=== PATIENT | male | born 1950 | race Caucasian/White ===

== ENCOUNTER 2017-12-12 12:10 | Day surgery (SDC) | payer MEDICARE, BC ==
[~2017-12-12 12:10] MED LIST: RINGER'S SOLUTION,LACTATED 1,000 ML IV PRN
[2017-12-12] MEDS ORDERED: RINGER'S SOLUTION,LACTATED 1,000 ML IV ONE (13:03)
[2017-12-12] MEDS ORDERED: RINGER'S SOLUTION,LACTATED 1,000 ML IV PRN (13:36)
--- NOTE | 2017-12-13 07:19 | OR ---
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 He has had subsequent surveillance colonoscopies (most recently 2012) with only one hyperplastic polyp in 2007. He is currently asymptomatic FINDINGS: Diverticulosis otherwise normal exam to the small bowel to colon anastomosis NARRATIVE OF PROCEDURE: The patient was identified in the holding area, and prior to the administration of anesthetic, a multidisciplinary timeout was observed. With the patient in the left lateral position and after the administration of intravenous sedation, the perineum was inspected. There was no evidence of pilonidal disease or skin breakdown. The external appearance of the anus was normal. Sphincter tone was good. The flexible fiberoptic colonoscope was inserted into the rectum which was insufflated with air. The rectal mucosa and submucosal vascular pattern appeared normal, the prep was seen to be complete. The scope was advanced through the sigmoid colon, up the descending colon, and around the splenic flexure where the triangular haustral architecture of the transverse colon was seen. The scope was advanced across the transverse colon to the small bowel to colon anastomosis. This appeared slightly hyperplastic and a biopsy was obtained. The biopsy site was seen to be hemostatic. The scope was then slowly withdrawn in a circular fashion so that all aspects of colonic mucosa were inspected. The colon was normal in caliber. The haustral architecture appeared well preserved throughout with no evidence of external compression. The mucosa and submucosal vascular pattern appeared normal, specifically there was no gross evidence to suggest colitis or inflammatory bowel disease and no AV malformations were seen. Diverticulosis was moderate in degree and confined primarily to the sigmoid colon. No polyps were encountered. The scope was gradually withdrawn to the level of the rectum. As much insufflated air as possible was removed. The scope was withdrawn from the patient and the procedure terminated. The patient tolerated the anesthetic and procedure well without complication and was transferred back to the ambulatory surgery area awake and in stable condition. The patient remained stable throughout a period of postoperative observation. He denied abdominal discomfort, was able to tolerate by mouth intake, and was up without assistance. I shared the operative findings with the patient and he was given copies of the photographs which appear in the medical record. He was discharged home with instructions not to engage in hazardous activity today, but may resume normal activity tomorrow, and advance diet as tolerated. He is to continue those medications as listed in the history and physical exam. I made arrangements to contact him with the biopsy report and will make additional recommendation for treatment and follow-up based upon that result. Reviewed and electronically signed
[2017-12-13 08:35] VITALS: BP 138/87
== END 2017-12-12 12:11 | disposition home or self-care (01) ==
LOC: AMB 12:10
PROVIDERS: ATTEND Surgery
PROC: 0DBH8ZX Excision of Cecum, Via Natural or Artificial Opening Endoscopic, Diagnostic (ICD-10-PCS; principal; 2017-12-12)
DX: K57.32 Diverticulitis of large intestine without perforation or abscess without bleeding (principal); Z98.890 Other specified postprocedural states; Z85.038 Personal history of other malignant neoplasm of large intestine